=== PATIENT | female | born 1955 | race African-American/Black ===

== ENCOUNTER 2019-12-23 08:14 | Emergency (ER) | payer MEDICARE, OTHER ==
[~2019-12-23] VITALS: Ht 149.9 cm; Wt 129.7 kg
--- NOTE | 2019-12-23 08:32 | NUR ---
ED Nurse Note: Patient ambulated to ER c/o left knee pain s/p "total knee replacement in 2018". Patient stated has knee swellin, and some discomphort, wants to be sure that there is no blood clots. Patient AAO x4, VSS at this time, skin is warm to touch.
--- NOTE | 2019-12-23 09:05 | NUR ---
ED Nurse Note: US BY BED SIDE
--- NOTE | 2019-12-23 09:24 | Emergency Room Report ---
History of Present Illness General Chief Complaint: Lower Extremity Injury Source: Patient Present Illness HPI 64-year-old female presents with left knee pain. States she noticed pain yesterday throbbing, 8 out of 10, radiating down the leg. Patient states it feels different than her normal pain. Has had pain since her knee replacement in 2018. Is concerned about a blood clot. Denies chest pain or shortness of breath. No other aggravating relieving factors. Denies any other associated symptoms Allergies: Coded Allergies: No Known Allergies (Unverified , 12/23/19) COVID-19 Screening Contact w/high risk pt: No Experienced COVID-19 symptoms?: No COVID-19 Testing performed POWER OPERATOR: No Patient History Past Medical History: DM, HTN Past Surgical History: other - Left knee replacement Pertinent Family History: none Social History: Denies: smoking, alcohol use, drug use Now: No Immunizations: UTD Reviewed Nursing Documentation: PMH: Agreed; PSxH: Agreed Nursing Documentation-PMH Hx Hypertension: Yes - total hystrectomy 1993 Hx Diabetes: Yes Review of Systems All Other Systems: negative except mentioned in HPI Physical Exam Vital Signs Date Time Temp Pulse Resp B/P (MAP) Pulse Ox O2 Delivery O2 Flow Rate FiO2 12/23/19 08:15 96.3 76 17 152/88 (109) 100 Room Air Sp02 EP Interpretation: reviewed, normal General Appearance: no apparent distress, alert, GCS 15, non-toxic, obese Head: normocephalic, atraumatic Eyes: bilateral eye normal inspection, bilateral eye PERRL ENT: hearing grossly normal, normal pharynx, no angioedema, normal voice Neck: full range of motion, supple/symm/no masses Respiratory: chest non-tender, lungs clear, normal breath sounds, speaking full sentences Cardiovascular #1: regular rate, rhythm, no edema Cardiovascular #2: 2+ carotid (R), 2+ carotid (L), 2+ radial (R), 2+ radial (L), 2+ dorsalis pedis (R), 2+ dorsalis pedis (L) Gastrointestinal: normal bowel sounds, non tender, soft, non-distended, no guarding, no rebound Rectal: deferred Genitourinary: normal inspection, no CVA tenderness Musculoskeletal: back normal, normal range of motion, gait/station normal, tender - Left knee Neurologic: alert, motor strength/tone normal, oriented x3, sensory intact, responsive, speech normal Psychiatric: judgement/insight normal, memory normal, mood/affect normal, no suicidal/homicidal ideation Reflexes: 3+ bicep (R), 3+ bicep (L), 3+ tricep (R), 3+ tricep (L), 3+ knee (R), 3+ knee (L) Skin: no rash Lymphatic: no adenopathy Medical Decision Making Diagnostic Impression: Primary Impression: Chronic pain of left knee ER Course Hospital Course 64-year-old female presents with left knee pain. History of knee replacement. Differential diagnoses include: DVT, cellulitis, contusion, abscess Clinical course Patient placed on stretcher after initial history and physical I ordered venous duplex Doppler ultrasound shows no evidence of DVT I discussed findings with patient. No fall or injury. Patient is obese with prior history of knee replacement. Likely muscular. Safe for discharge close outpatient follow-up. States she has a PMD I. I feel this is a highly complex case requiring extensive working including EKG/Rhythm strip, Xray/CT/US, Blood/urine lab work, repeat exams while in ED, and administration of strong opiates/narcotics for pain control, admission to hospital or close patient follow up. Diagnosis -chronic pain of left knee Stable and discharged to home. Followup with PMD. Return to ED if symptoms recur or worsen CT/MRI/US Diagnostic Results CT/MRI/US Diagnostic Results : Imaging Test Ordered: Venous duplex Impression No evidence of DVT left lower extremity Last Vital Signs Date Time Temp Pulse Resp B/P (MAP) Pulse Ox O2 Delivery O2 Flow Rate FiO2 12/23/19 08:15 96.3 76 17 152/88 (109) 100 Room Air Status: improved Disposition: HOME, SELF-CARE Condition: Stable Referrals: Philippe Leonard MD (PCP) Severo Contreras MD Dec 23, 2019 09:24
[2019-12-23 09:48] VITALS: BP 152/88
--- NOTE | 2019-12-23 09:49 | NUR ---
ED Nurse Note: Pt cleared by health care Provider for discharge. DC instructions/prescription was given and explained to pt and verbalized understanding of teachings. All medical deviecs such as ID band removed. Pt is AAO x4, ambulatory and left with all personal belongings.
--- NOTE | 2019-12-23 14:14 | Diagnostic Imaging Report ---
Indication: Extreme left leg and knee pain Technique: Grayscale and duplex images of the left lower extremity veins Comparison: Findings: On the left, grayscale and duplex images demonstrate no evidence of intraluminal thrombus. Normal phasic Doppler waveforms, demonstrating normal augmentation response and no evidence of valvular insufficiency. Greater saphenous vein(s) and tibial veins are patent. Normal compressibility. Note that the right common femoral vein was also imaged and appears unremarkable Impression: Negative for evidence of lower extremity deep venous thrombosis bilaterally
== END 2019-12-23 09:49 | disposition home or self-care (01) ==
LOC: EMR 08:40
DX: M25.562 Pain in left knee (principal); Z96.652 Presence of left artificial knee joint; I10 Essential (primary) hypertension; E11.9 Type 2 diabetes mellitus without complications; Z90.710 Acquired absence of both cervix and uterus
CPT/HCPCS: 93971; 99284